=== PATIENT | male | born 1930 ===

== ENCOUNTER → 2016-09-22 | Outpatient (REF) | payer MEDICARE, OTHER ==
[2016-09-22 13:30] LABS: PERCENT SATURATION 46.9 % (19.7-37.4); PHOSPHORUS LEVEL 3.3 MG/DL (2.5-4.9)
[2016-09-24 00:06] LABS: ERYTHROPOIETIN 27.2 mIU/mL (2.6-18.5)
== END ==
LOC: M LAB REF 12:45
PROVIDERS: ATTEND Internal Medicine
DX: N18.4 Chronic kidney disease, stage 4 (severe) (principal); D63.1 Anemia in chronic kidney disease; E29.1 Testicular hypofunction; N18.9 Chronic kidney disease, unspecified

== ENCOUNTER → 2017-09-02 | Outpatient (REF) | payer MEDICARE, OTHER ==
[2017-09-02 13:28] LABS: IRON (FE) 100 UG/DL (65-175); PERCENT SATURATION 33.1 % (19.7-50.0); TOTAL IRON BINDING CAPACITY 302 UG/DL (250-450)
[2017-09-02 13:28] LABS: PHOSPHORUS LEVEL 3.3 MG/DL (2.5-4.9)
[2017-09-05 14:12] LABS: TESTOSTERONE FREE (DIRECT) 9.6 pg/mL (6.6-18.1)
== END ==
LOC: M LAB REF 12:07
DX: E29.1 Testicular hypofunction (principal); D63.1 Anemia in chronic kidney disease; N18.4 Chronic kidney disease, stage 4 (severe)
CPT/HCPCS: 83550